=== PATIENT | female | born 1945 | race Caucasian/White ===

== ENCOUNTER 2022-09-12 00:52 | Emergency (ER) | payer BC, MEDICAID, MEDICARE ==
[~2022-09-12] VITALS: Ht 172.7 cm; Wt 65.9 kg
[~2022-09-12 00:52] MED LIST: GARL10004 PO; Hydrocodone Bit/Acetaminophen PO; VITC500T PO
[2022-09-12 02:23] LABS: BASOPHILS % (AUTO) 0.5 % (0-1); EOSINOPHILS # (AUTO) 0.1 X10'3 (0-0.9); EOSINOPHILS % (AUTO) 1.4 % (0-6); HEMATOCRIT 39.3 % (35.0-45.0); LYMPHOCYTES % (AUTO) 24.4 % (21-51); MEAN CORPUSCULAR HEMOGLOBIN 27.9 PG (27.0-31.0); MEAN CORPUSCULAR HGB CONC 33.1 g/dL (33.0-36.5); MEAN CORPUSCULAR VOLUME 84.4 FL (78-98); MEAN PLATELET VOLUME 9.8 FL (7.4-10.4); MONOCYTES # (AUTO) 0.5 X10'3 (0-0.9); MONOCYTES % (AUTO) 5.6 % (2-12); NEUTROPHILS # (AUTO) 5.6 X10'3 (1.8-7.7); NEUTROPHILS % (AUTO) 68.1 % (42-75); PLATELET COUNT 192 X10'3 (140-440); RED BLOOD COUNT 4.66 X10'6 (4.20-5.60); RED CELL DISTRIBUTION WIDTH 14.4 % (11.5-14.5); WHITE BLOOD COUNT 8.3 X10'3 (4.5-11.0)
[2022-09-12 02:32] LABS: ALANINE AMINOTRANSFERASE 18 U/L (12-78); ALBUMIN 4.2 G/DL (3.4-5.0); ALBUMIN/GLOBULIN RATIO 1.1 (1.1-1.5); ALKALINE PHOSPHATASE 80 IU/L (46-116); ANION GAP 14 (8-16); ASPARTATE AMINO TRANSFERASE 18 U/L (10-37); BILIRUBIN,TOTAL 0.6 MG/DL (0.1-1.0); BLOOD UREA NITROGEN 17 MG/DL (7-18); CALCIUM 9.3 MG/DL (8.5-10.1); CHLORIDE 102 MMOL/L (99-107); CREATININE 0.74 MG/DL (0.40-0.90); GLUCOSE 106 MG/DL (70-104); LIPASE 51 U/L (73-393); POTASSIUM 3.8 MMOL/L (3.5-5.1); SODIUM 141 MMOL/L (135-145); TOTAL CARBON DIOXIDE 25.3 MMOL/L (24-32); TOTAL PROTEIN 7.9 G/DL (6.4-8.2); eGFR 76 ML/MIN
[2022-09-12] MEDS ORDERED: normal saline 1000ml 1,000 ML IV ONE (03:15)
[2022-09-12] MEDS ORDERED: ceFAZolin/D5W- 1GM premix 50 ML IV STA (03:16)
[2022-09-12] MEDS ORDERED: LORazepam 2 mg/ml vial IV ONE (03:20)
[2022-09-12] MEDS ORDERED: ketorolac trometh. 30mg/ml inj. IV ONE (03:20)
[2022-09-12] MEDS ORDERED: TETanus/Pertussis (Acell)/Diphther VAC/PF (Tdap-Adult) 0.5ml syringe IMVAC ONE (03:20)
--- NOTE | 2022-09-12 05:00 | NUR ---
PT THROWING FREQUENT PVCS AND BIGEMINY. MD AWARE. MD ALSO AWARE OF BP.
[2022-09-12] MEDS ORDERED: cloNIDine 0.1 mg tablet PO ONE (05:30)
[2022-09-12 05:50] LABS: MAGNESIUM 1.3 MG/DL (1.5-2.4)
[2022-09-12] MEDS ORDERED: magnesium 4gm in 100ml NS 100 ML IV ONE (06:00)
[2022-09-12] MEDS ORDERED: enalaprilat dihydrate 2.5mg/2ml vial IV ONE (06:35)
[2022-09-12 06:53] LABS: CLARITY,URINE CLEAR (Clear); COLOR,URINE YELLOW (Yellow); GLUCOSE, URINE NEGATIVE (Neg); KETONES,URINE 15 mg/dl (Neg); LEUKOCYTE ESTERASE ,URINE SMALL (Neg); NITRITES, URINE NEGATIVE (Neg); OCCULT BLOOD,URINE NEGATIVE (Neg); PROTEIN,URINE NEGATIVE (Neg); UA COLLECTION TYPE VOIDED; UROBILINOGEN,URINE 0.2 E.U/dL (0.2-1.0)
--- NOTE | 2022-09-12 07:00 | NUR ---
Patient's PIV in right hand blown when this RN arrived on shift. Removed and restarted in left hand
[2022-09-12 07:04] LABS: BACTERIA,URINE 1+ /HPF (Neg); MUCUS STRANDS FEW /LPF (Neg); RBC,URINE NONE SEEN /HPF (0-2); RENAL CELLS, URINE FEW /HPF; SQUAMOUS EPITHELIAL CELL,UR MODERATE /LPF (FEW); TRANSITIONAL EPI CELLS,URINE FEW /HPF; URIC ACID CRYSTALS 1+ /HPF (NEGATIVE)
--- NOTE | 2022-09-12 07:57 | NUR ---
Patient sleeping comfortably at this time, in NAD at this time. Noted with [email or web address] and MAVIS's patient stable at this time.
--- NOTE | 2022-09-12 09:17 | NUR ---
Updated MD for DC of patient
[2022-09-12] MEDS ORDERED: LISI20TA28 PO (09:36)
[2022-09-12] MEDS ORDERED: CEPH-585 PO (09:36)
[2022-09-12 10:05] VITALS: BP 173/96
== END 2022-09-12 10:06 | disposition home or self-care (01) ==
LOC: ER 00:52
DX: I10 Essential (primary) hypertension (principal); N39.0 Urinary tract infection, site not specified; E83.42 Hypomagnesemia; M79.10 Myalgia, unspecified site; R10.9 Unspecified abdominal pain; Z88.5 Allergy status to narcotic agent
CPT/HCPCS: 36415; 71045; 80053; 81001; 83690; 83735; 83880; 84484; 85025; 87088; 90471; 90715; 93005; 96365; 96367; 96375; 99285; J0690; J1885; J2060; J3475; J3490; J7030

== ENCOUNTER 2024-03-11 10:39 | Outpatient (CLI) | payer BC ==
[~2024-03-11 10:39] MED LIST changes: +LISI20TA28 PO
== END 2024-03-11 23:59 | disposition home or self-care (01) ==
LOC: RAD 10:39
PROVIDERS: ATTEND Registered Nurse
DX: S89.91XD Unspecified injury of right lower leg, subsequent encounter (principal); S79.911D Unspecified injury of right hip, subsequent encounter; M16.11 Unilateral primary osteoarthritis, right hip; X58.XXXD Exposure to other specified factors, subsequent encounter
CPT/HCPCS: 73502; 73564